=== PATIENT | female | born 1995 | race Two or more races ===

== ENCOUNTER 2022-12-21 14:13 | Emergency (ER) | payer MEDICAID ==
[~2022-12-21] VITALS: Ht 157.5 cm; Wt 52.6 kg
--- NOTE | 2022-12-21 14:38 | NUR ---
CAME IN WITH C/O GENGERALIZED ABDOMINAL PAIN SINCE TUESDAY. 01/29 PAIN SCALE
--- NOTE | 2022-12-21 14:40 | NUR ---
URINE SAMPLE OBTAINED SENT TO LAB
--- NOTE | 2022-12-21 14:46 | NUR ---
ESTABLISHED IV LINE 20 G LEFT AC . INFUSING WELL
[2022-12-21] MEDS ORDERED: IV NS 0.9% 1,000 ML BAG IV ONE (15:00)
[2022-12-21 15:11] LABS: BASOPHILS % (AUTO) 0.3 % (0.0-2.0); HEMATOCRIT 44 % (33-45); HEMOGLOBIN 14.4 g/dL (11.5-14.8); LYMPHOCYTES % (AUTO) 34.3 % (20.0-44.0); MEAN CORPUSCULAR HGB CONC 33 g/dl (31.0-36.0); MEAN CORPUSCULAR VOLUME 87 fL (82-100); MONOCYTES # (AUTO) 0.4 K/uL (0.1-1.30); MONOCYTES % (AUTO) 6.6 % (2.0-12.0); NEUTROPHILS # (AUTO) 3.3 K/uL (1.8-8.9); NEUTROPHILS % (AUTO) 57.8 % (43.0-81.0); PLATELET COUNT (AUTO) 215 K/uL (150-450); RED BLOOD CELL COUNT(AUTO) 5.05 MIL/uL (4.0-5.2); WHITE BLOOD COUNT (AUTO) 5.7 K/uL (4.3-11.0)
[2022-12-21 15:55] LABS: ALBUMIN 4.5 g/dL (3.4-5.0); BILIRUBIN,DIRECT 0.1 mg/dL (0.0-0.2); BILIRUBIN,TOTAL 0.4 mg/dL (0.2-1.0); CALCIUM, SERUM 8.9 mg/dL (8.5-10.1); CREATININE 0.8 mg/dL (0.6-1.3); POTASSIUM 3.8 mmol/L (3.5-5.1); TOTAL PROTEIN, SERUM 8.1 g/dL (6.4-8.2)
--- NOTE | 2022-12-21 16:35 | NUR ---
IV removed. Catheter intact and site benign. Pressure and 4x4 applied to site. No bleeding noted.Patient discharged to home in stable condition. Written and verbal after care instructions given. Patient verbalizes understanding of instruction.
[2022-12-21 16:37] VITALS: BP 125/81
[2022-12-21 17:38] LABS: BILIRUBIN,URINE NEGATIVE (NEGATIVE); COLOR,URINE YELLOW (YELLOW); LEUKOCYTE ESTERASE ,URINE NEGATIVE (NEGATIVE); NITRITE, URINE NEGATIVE (NEGATIVE); PROTEIN,URINE NEGATIVE (NEGATIVE); UGLUCOSE NEGATIVE (NEGATIVE); UROBILINOGEN,URINE 0.2 EU/dL (0.2)
[2022-12-21 17:59] LABS: BACTERIA,URINE Few /HPF (None Seen); SQUAMOUS EPITHELIAL CELL,UR 0-2 /HPF (None Seen); WBC,URINE NONE SEEN /HPF (0-3)
== END 2022-12-21 16:37 | disposition home or self-care (01) ==
LOC: ER 14:17
DX: R10.84 Generalized abdominal pain (principal)
CPT/HCPCS: 99283; 96360; 85025; 80048; 87086; 83690; 80076; 84703; 81001; 36415; 84702; J7030; A4223